=== PATIENT | male | born 1965 | race Caucasian/White ===

== ENCOUNTER 2018-10-06 18:42 | Emergency (ER) | payer MEDICAID ==
[~2018-10-06] VITALS: Ht 177.8 cm; Wt 74.8 kg
--- NOTE | 2018-10-06 18:45 | NUR ---
PT [id number] FROM THE STREETS, RFA AND R RIB AREA DOG BITE X 1 HOUR AGO, PT IS AAOX4, NOT IN RESPIRATORY DISTRESS, V/S STABLE, KEPT RESTED AND COMFORTABLE.
--- NOTE | 2018-10-06 19:22 | NUR ---
REPORT GIVEN TO ANTONIO NOGUERA FOR [facility].
[2018-10-06] MEDS ORDERED: TDAP [DIPH/PERTUSSIS/TET] 0.5 ML VIAL IM ONE ×2 (19:45→20:00)
[2018-10-06] MEDS ORDERED: ACETAMINOPHEN ES 500 MG TABLET ONE (19:45)
[2018-10-06] MEDS ORDERED: ACETAMINOPHEN ES 500 MG TABLET PO ONE (20:00)
--- NOTE | 2018-10-06 20:03 | NUR ---
RADIO AT BEDSIDE.
--- NOTE | 2018-10-06 20:53 | NUR ---
Pt medically cleared and OK to Book by MARIA FERNANDA Andrews in stable condition. Patient discharged to [employer] officers [place] [employer] [place] [address]# [id number] custody in stable condition. Written and verbal after care instructions given. Patient placed in handcuffs by [employer] officers, ambulatory w/ steady gait, resp even & unlabored, nad noted. Pt verbalizes understanding of instruction.
[2018-10-06 20:55] VITALS: BP 128/90
== END 2018-10-06 20:56 ==
LOC: ER 18:44
DX: S51.851A Open bite of right forearm, initial encounter (principal); Z98.890 Other specified postprocedural states; Z86.19 Personal history of other infectious and parasitic diseases; W54.0XXA Bitten by dog, initial encounter; Y93.89 Activity, other specified; Y92.488 Other paved roadways as the place of occurrence of the external cause; Y99.8 Other external cause status
CPT/HCPCS: 73090; 90471; 90715; 99283; A4606; A6402; Z7610

== ENCOUNTER 2021-03-31 02:18 | Emergency (ER) | payer OTHER, MEDICAID ==
[~2021-03-31] VITALS: Ht 177.8 cm; Wt 86.2 kg
--- NOTE | 2021-03-31 02:26 | NUR ---
PT [employer] C/O LEFT FOOT SWELLING AND REDNESS [id number]. PT AAOX4 BREATHING EVENLY AND UNLABORED. PT ATTACHED TO MONITOR AND POX. MD AT BEDSIDE FOR EVAL. PT GIVEN BLANKET AND CALL LIGHT WITHIN REACH
--- NOTE | 2021-03-31 03:12 | NUR ---
us at bedside
--- NOTE | 2021-03-31 03:42 | NUR ---
Patient discharged to home in stable condition. Written and verbal after care instructions given. Patient verbalizes understanding of instruction.Pt ambulatory with a steady gait
[2021-03-31 03:46] VITALS: BP 135/70
== END 2021-03-31 03:42 | disposition home or self-care (01) ==
LOC: ER 02:20
DX: R60.0 Localized edema (principal); Z98.890 Other specified postprocedural states
CPT/HCPCS: 93971-TC